=== PATIENT | male | born 1945 | race Caucasian/White ===

== ENCOUNTER 2024-03-09 12:55 | Outpatient (CLI) | payer OTHER, SELFPAY ==
--- NOTE | 2024-03-09 | CA_ITS ---
APPROVED REPORT EXAM: Comprehensive 2D, Doppler, and color-flow Echocardiogram [employer]: MARY Amaya, RVS Ht: 6 ft 4 in Wt: 277lbs BSA: 2.54 BP: 160/90 mmHg Rhythm: Bradycardia Indications: Afib, IHD, Murmur, Bradycardia, HTN 2D Dimensions LA Volume 97.30 mL LA Volume Index 38.16 mL/m2 (M/F) 16-34 M-Mode Dimensions RVDd 2.68 cm (0.9-2.6) LA Diam 5.33 cm (1.9-4.0) LVDd 6.67 cm (3.5-5.7) LVDs 4.89 cm (3.5-5.7) IVSd 0.85 cm (0.6-1.1) PWd 1.02 cm (0.6-1.1) EF (Teich) 51.00% EPSs 1.49 cm FS 26.70% EDV (Teich) 229.00 mL TAPSE 2.40 (<1.7) ESV (Teich) 112.30 mL LV Diastology E Decel Time 433 (160-240 msec) E/A Ratio 0.54 MED A' 8.00 cm/s LAT A' 10.00 cm/s Aortic Valve AoV Peak Wayne. 147.0 (50-130 cm/s) AO Peak GR. 8.60 mmHg AO Mean GR. 4.40 (<5 mmHg) AO VTI 31.8 (18-25 cm) Mitral Valve MV A Velocity 59.0 (40-130 cm/s) E/A Ratio 0.54 Tricuspid Valve TR P. Velocity 200.00 cm/s Left Ventricle The left ventricle is normal size. The left ventricular systolic function is normal. The left ventricular ejection fraction is within the normal range. There is normal left ventricular wall thickness. There is normal LV segmental wall motion. The left ventricular diastolic function is normal. LVEF is 55%. Right Ventricle The right ventricle is normal size. The right ventricular systolic function is normal. Atria The left atrium size is normal. The right atrium size is normal. There is no Doppler evidence of interatrial shunt. Aortic Valve The aortic valve is mildly thickened. There is no aortic valvular stenosis. No aortic regurgitation is present. Mitral Valve The mitral valve is normal in structure. No evidence of mitral valve stenosis. Trace mitral regurgitation. Tricuspid Valve The tricuspid valve leaflets are thin and pliable. Trace tricuspid regurgitation. There is insufficient TR jet to estimate RVSP. Pulmonic Valve The pulmonary valve is normal in structure. Trace pulmonic regurgitation. Great Vessels The aortic root is normal in size. The ascending aorta is not well-visualized. IVC is normal in size and collapses >50% with inspiration. Pericardium There is no pericardial effusion. Other Information Study Quality: Adequate Conclusion Normal biventricular systolic function. No significant valvular stenosis or regurgitation. Electronically signed by : Kristi Shelton MD 03/12/2024 20:43:58
== END 2024-03-09 23:59 | disposition home or self-care (01) ==
LOC: RT 12:59
PROVIDERS: Visit Provider Chiropractor
DX: I25.9 Chronic ischemic heart disease, unspecified (principal); R00.1 Bradycardia, unspecified
CPT/HCPCS: 93306